=== PATIENT | male | born 1995 ===

== ENCOUNTER 2016-09-18 23:54 | Emergency (ER) | payer SELFPAY ==
[~2016-09-18] VITALS: Ht 180.3 cm; Wt 99.8 kg
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
[2016-09-19] MEDS ORDERED: ONDANSETRON ODT 4 MG TAB.RAPDIS SL ONE (00:15)
[2016-09-19] MEDS ORDERED: HYDROMORPHONE 1 MG/1 ML DISP.SYRIN IM ONE (00:15)
[2016-09-19] MEDS ORDERED: HYDROMORPHONE 2 MG/1 ML DISP.SYRIN ONE (00:22)
[2016-09-19] MEDS ORDERED: ONDANSETRON ODT 4 MG TAB.RAPDIS ONE (00:23)
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
[2016-09-19 01:28] VITALS: BP 131/97
== END 2016-09-19 01:30 | disposition home or self-care (01) ==
LOC: ER 09-19 00:01
DX: S16.1XXA Strain of muscle, fascia and tendon at neck level, initial encounter (principal); S39.012A Strain of muscle, fascia and tendon of lower back, initial encounter; V49.9XXA Car occupant (driver) (passenger) injured in unspecified traffic accident, initial encounter; Y93.89 Activity, other specified; Y99.8 Other external cause status; Y92.89 Other specified places as the place of occurrence of the external cause
CPT/HCPCS: 72125; 72131; A4663; J1170; Q0162